=== PATIENT | male | born 1940 | race Caucasian/White ===

== ENCOUNTER → 2016-11-19 | Outpatient (CLI) | payer MEDICARE, BC | END | disposition home or self-care (01) | LOC: PCVCCLINIC 09:54 | PROVIDERS: ATTEND Internal Medicine | DX: I48.2 Chronic atrial fibrillation (principal); E78.5 Hyperlipidemia, unspecified; I35.0 Nonrheumatic aortic (valve) stenosis; I73.9 Peripheral vascular disease, unspecified; I10 Essential (primary) hypertension; D69.42 Congenital and hereditary thrombocytopenia purpura; I47.2 Ventricular tachycardia; Z79.899 Other long term (current) drug therapy; Z87.891 Personal history of nicotine dependence | CPT/HCPCS: 80061; 93005; G0463 ==

== ENCOUNTER → 2017-05-21 | Outpatient (CLI) | payer MEDICARE, BC ==
--- NOTE | 2017-05-21 13:20 | PCVCIMAG ---
APPROVED REPORT Study performed: 05/21/2017 09:54:18 EXAM: Comprehensive 2D, Doppler, and color-flow Echocardiogram Patient Location: Echo lab Room #: 3Status: routine BSA: 2.02 HR: 82 bpmBP: 152/64 mmHg Rhythm: Atrial Fibrillation Other Information Study Quality: Technically Difficult Indications Aortic Valve Disease Atrial Fibrillation Hypertension/HDD 2D Dimensions LVEF(%): 41.71 (>50%) IVSd: 8.17 (7-11mm)LVOT Diam: 21.36 (18-24mm) LVDd: 58.26 mm PWd: 9.09 (7-11mm)Ascending Ao: 27.58 (22-36mm) LVDs: 46.15 (25-40mm) Left Atrium: 35.45 (27-40mm) Aortic Root: 19.34 mm LV Single Plane 4CH: 50.36 % LV Single Plane 2CH: 52.66 %Mejía's LVEF: 51.51 % Biplane EF: 50.3 % Volumes Left Atrial Volume (Systole) Single Plane 4CH: 44.42 mLSingle Plane 2CH: 44.72 mL Biplane LA Volume: 53.00 mLLA ESV Index: 26.00 mL/m2 Aortic Valve AoV Peak Luis.: 2.71 m/s AO Peak Gr.: 28.36 mmHgLVOT Max P.81 mmHg AO Mean Gr.: 17.19 mmHgLVOT Mean P.59 mmHg AO V2 Mean: 1.95 m/sLVOT Max V: 1.05 m/s AO V2 VTI: 54.38 cm EROS (VTI): 1.32 ps2BQNA V1 VTI: 20.07 cm EROS Vmax: 1.39 cm2 Mitral Valve MV E Max Luis.: 1.24 m/s MV PHT: 60.30 ms MVA (PHT): 3.65 cm2 Pulmonary Valve PV Peak Luis.: 1.07 m/sPV Peak Gr.: 4.57 mmHg Tricuspid Valve TR Peak Luis.: 2.77 m/s TR Peak Gr.: 30.66 mmHg TV Vmax: 0.69 m/sPA Pressure: 38.00 mmHg Left Ventricle Left ventricle is mildly dilated. Global mild hypokinesis is seen. There is normal left ventricular wall thickness. Left ventricular systolic function is low normal. LVEF is 50%. This study is not technically sufficient to allow evaluation of the LV diastolic function due to atrial fibrillation. Right Ventricle The right ventricle is normal size. The right ventricular systolic function is normal. Atria The left atrium size is mildly dilated Right atrium is mildly dilated. Aortic Valve Aortic valve leaflets are moderately calcified Aortic valve is not well visualized. Trace aortic regurgitation is present. There is moderate valvular aortic stenosis. Calculated aortic valve area is 1.2 cm2 with maximum pressure gradient of 39 mmHg and mean pressure gradient of 17 mmHg. Mitral Valve The mitral valve is normal in structure. Moderate mitral regurgitation. No evidence of mitral valve stenosis. Tricuspid Valve The tricuspid valve is normal in structure. Moderate to severe tricuspid regurgitation with a PA pressure of 38 mmHg. Pulmonic Valve The pulmonary valve is normal in structure. There is no pulmonic valvular regurgitation. Great Vessels The aortic root is normal in size. The ascending aorta is normal in size. IVC is normal in size and collapses with >50% inspiration Pericardium There is no pericardial effusion. There is no pleural effusion. <Conclusion> Left ventricular systolic function is low normal. LVEF is 50%. Both atria are mildly dilated Aortic valve leaflets are moderately calcified Moderate aortic stenosis. Calculated aortic valve area is 1.2 cm2 with maximum pressure gradient of 39 mmHg and mean pressure gradient of 17 mmHg. Structurally normal mitral valve. Moderate mitral insufficiency Pulmonary artery pressure of 38mmHg There is no pericardial effusion.
== END | disposition home or self-care (01) ==
LOC: PCVCIMAG 09:34
PROVIDERS: ATTEND Internal Medicine
DX: I48.2 Chronic atrial fibrillation (principal); I35.0 Nonrheumatic aortic (valve) stenosis; I10 Essential (primary) hypertension; E78.5 Hyperlipidemia, unspecified; I73.9 Peripheral vascular disease, unspecified; Z87.891 Personal history of nicotine dependence; Z79.899 Other long term (current) drug therapy
CPT/HCPCS: 80061; 93005; 93306; G0463

== ENCOUNTER → 2017-11-19 | Outpatient (CLI) | payer MEDICARE, BC | END | disposition home or self-care (01) | LOC: PCVCCLINIC 11:07 | DX: I48.2 Chronic atrial fibrillation (principal); I35.0 Nonrheumatic aortic (valve) stenosis; I10 Essential (primary) hypertension; I73.9 Peripheral vascular disease, unspecified; G30.1 Alzheimer's disease with late onset; F02.80 Dementia in other diseases classified elsewhere, unspecified severity, without behavioral disturbance, psychotic disturbance, mood disturbance, and anxiety; E78.5 Hyperlipidemia, unspecified; Z88.0 Allergy status to penicillin; Z87.891 Personal history of nicotine dependence; Z79.899 Other long term (current) drug therapy | CPT/HCPCS: 80061; 93005; G0463 ==

== ENCOUNTER → 2018-05-27 | Outpatient (CLI) | payer MEDICARE, BC | END | disposition home or self-care (01) | LOC: PCVCCLINIC 11:30 | PROVIDERS: ATTEND Internal Medicine | DX: I48.2 Chronic atrial fibrillation (principal); R94.31 Abnormal electrocardiogram [ECG] [EKG]; I35.0 Nonrheumatic aortic (valve) stenosis; I10 Essential (primary) hypertension; E78.5 Hyperlipidemia, unspecified; I73.9 Peripheral vascular disease, unspecified; G30.1 Alzheimer's disease with late onset; F02.80 Dementia in other diseases classified elsewhere, unspecified severity, without behavioral disturbance, psychotic disturbance, mood disturbance, and anxiety; E78.00 Pure hypercholesterolemia, unspecified; I42.9 Cardiomyopathy, unspecified; Z87.891 Personal history of nicotine dependence; Z88.0 Allergy status to penicillin; Z88.8 Allergy status to other drugs, medicaments and biological substances; Z79.899 Other long term (current) drug therapy | CPT/HCPCS: 93005; G0463 ==